=== PATIENT | female | born 1990 | race Caucasian/White ===

== ENCOUNTER 2021-11-26 03:36 | Emergency (ER) | payer OTHER ==
[2021-11-26 04:22] LABS: HEMOGLOBIN 14.4 gm/dl (12.3-15.3); RED BLOOD COUNT 4.75 M/UL (4.00-5.10)
[2021-11-26 04:50] LABS: BUN/CREATININE RATIO 11 (0-10)
[2021-11-26] MEDS ORDERED: TORADOL 10 MG T10 MG PO (05:55)
[2021-11-26] MEDS ORDERED: OMNICEF 300 MG300 MG PO (05:55)
[2021-11-26] MEDS ORDERED: ZOFRAN ODT 4 MG4 MG PO (05:55)
[2021-11-26] MEDS ORDERED: FLOMAX0.4 MG PO (05:55)
== END 2021-11-26 06:02 | disposition home or self-care (01) ==
LOC: ER1 03:36
PROVIDERS: Family Medicine
DX: N13.2 Hydronephrosis with renal and ureteral calculous obstruction (principal); N39.0 Urinary tract infection, site not specified; F17.210 Nicotine dependence, cigarettes, uncomplicated
CPT/HCPCS: 80053; 81001; 83690; 84703; 85025; 87077; 87086; 87186; 96374; 96375; 99284; J0696; J1885; J2405; Q9967